=== PATIENT | female | born 1945 | race Caucasian/White ===

== ENCOUNTER 2024-05-26 19:02 | Emergency (ER) | payer OTHER ==
[2024-05-26 19:19] VITALS: BP 131/81; PULSE 75; RESP 18; TEMP 97.3; BMI 22.8
[2024-05-26] MEDS ORDERED: DIPHTH,PERTUSS(ACELL),TET 0.5 ML DISP.SYRIN IM ONE (19:42)
[2024-05-26] MEDS: DIPHTH,PERTUSS(ACELL),TET 0.5 ML DISP.SYRIN IM ONE (19:47)
[2024-05-26] MEDS ORDERED: ACETAMINOPHEN 325 MG TABLET (FP) ONE (21:53)
[2024-05-26] MEDS: ACETAMINOPHEN 325 MG TABLET (FP) PO ONE (21:55)
== END 2024-05-26 22:09 | disposition home or self-care (01) ==
LOC: FER 19:02
PROC: 0HQ1XZZ Repair Face Skin, External Approach (ICD-10-PCS; principal; 2024-05-26)
PROC: 3E0234Z Introduction of Serum, Toxoid and Vaccine into Muscle, Percutaneous Approach (ICD-10-PCS; 2024-05-26)
DX: S01.81XA Laceration without foreign body of other part of head, initial encounter (principal); R11.10 Vomiting, unspecified; R42 Dizziness and giddiness; W22.01XA Walked into wall, initial encounter
CPT/HCPCS: 12011-25; 70450-TC; 90471; 90715; 99284-25